=== PATIENT | female | born 1980 | race Caucasian/White ===

== ENCOUNTER 2021-09-01 06:40 | Day surgery (SDC) | payer OTHER | END 2021-09-01 14:30 | disposition home or self-care (01) | LOC: ADM 06:40 → CIR.AMB 06:40 | PROVIDERS: ATTEND Specialist | DX: O02.1 Missed abortion (principal); Z20.822 Contact with and (suspected) exposure to COVID-19; Z86.16 Personal history of COVID-19; J45.909 Unspecified asthma, uncomplicated ==